=== PATIENT | male | born 1970 | race Caucasian/White ===

== ENCOUNTER 2022-01-08 10:54 | Emergency (ER) | payer OTHER ==
[~2022-01-08] VITALS: Ht 180.3 cm; Wt 102.7 kg
[2022-01-08 13:20] VITALS: BP 120/91
[2022-01-08] MEDS ORDERED: LIDOCAINE 1% HCL (LOCAL ANESTH.) INJ 20ML MDV ID ONE (13:45)
[2022-01-08] MEDS ORDERED: TETANUS-DIPTH-ACEL PERTUSSIS 0.5ML SYR Tdap IM ONE (13:45)
[2022-01-08] MEDS ORDERED: ACET-1158 PO (14:21)
[2022-01-08] MEDS ORDERED: DOXY-332 PO (14:21)
[2022-01-08] MEDS ORDERED: CLIN300C8 PO (14:21)
== END 2022-01-08 14:27 | disposition home or self-care (01) ==
LOC: ER 10:54
DX: S61.411A Laceration without foreign body of right hand, initial encounter (principal); S30.851A Superficial foreign body of abdominal wall, initial encounter; E78.5 Hyperlipidemia, unspecified; Z79.2 Long term (current) use of antibiotics; Z79.899 Other long term (current) drug therapy; X58.XXXA Exposure to other specified factors, initial encounter; Y93.89 Activity, other specified; Y92.89 Other specified places as the place of occurrence of the external cause; Y99.8 Other external cause status
CPT/HCPCS: 10120; 12002; 90471; 90715; 99284; J2001